=== PATIENT | female | born 1945 | race Caucasian/White ===

== ENCOUNTER → 2017-09-25 | Outpatient (REF) | payer MEDICARE, OTHER ==
[~2017-09-25] MED LIST: ALB18R INH; ALBU8.5H12 IH; ASPI-1441 PO; AZIT-17 PO; CELE-1 PO; CETI10CA8 PO; DUL100/5PT INH; EST3 PO; FLU10 PO; GABA-549 PO; HYDR12.558 PO; LEV125 PO; LORA-630 PO; METF-411 PO; MIRA25TA PO; OMEP40CA48 PO; PER PO; PRED20TA6 PO; PREG25 PO; QUIN10TA24 PO; ROS10 PO; SUMA25TA27 PO; SUMA50TA34 PO; TRIA-18 PO; [UNRECOGNIZED DRUG - OTHER] PO
== END ==
LOC: ZZSTITCHES 10:28
PROVIDERS: ATTEND Physician Assistant
DX: R25.2 Cramp and spasm (principal); R53.83 Other fatigue; R60.9 Edema, unspecified
CPT/HCPCS: 82040; 82247; 82310; 82374; 82435; 82565; 82947; 83735; 84075; 84132; 84155; 84295; 84450; 84460; 84484; 84520

== ENCOUNTER → 2017-09-30 | Outpatient (CLI) | payer MEDICARE, OTHER ==
--- NOTE | 2017-10-10 14:55 | RADIOLOGY IMAGING REPORT ---
FACILITY: [facility] [place] PATIENT NAME: NETO STOCK : [id number] MR: [id number] V: [id number] EXAM DATE: [id number] ORDERING PHYSICIAN: MARIUM LEE TECHNOLOGIST: Erica Hoyt PROCEDURE:BILATERAL DIGITAL SCREENING MAMMOGRAM WITH CAD ASSISTED INTERPRETATION & 3D TOMOSYNTHESIS. Views obtained: Bilateral 2D full field CC & MLO, and corresponding Tomography. COMPARISON:09/19/2016, 09/13/2015. INDICATIONS:SCREENING TISSUE DENSITY: Scattered fibroglandular densities. FINDINGS: There is no mammographic finding suspicious for malignancy, and no significant change compared to prior mammograms. DIAGNOSTIC CATEGORY 1--NEGATIVE. RECOMMENDATIONS: ROUTINE MAMMOGRAM AND CLINICAL EVALUATION. IMPRESSION: BIRADS 1: Negative. Dictated by: Narcisa Denson M.D. on 10/10/2017 at 12:31 Transcribed by: LAUREEN on 10/10/2017 at 13:26 Approved by: Narcisa Denson M.D. on 10/10/2017 at 14:54 [facility]
== END ==
LOC: MAMO 01:09
PROVIDERS: ATTEND Physician Assistant
DX: Z12.31 Encounter for screening mammogram for malignant neoplasm of breast (principal)
CPT/HCPCS: 77063; 77067

== ENCOUNTER → 2017-09-30 | Outpatient (CLI) | payer MEDICARE, OTHER ==
[2017-09-30 08:36] LABS: PLATELET COUNT, AUTOMATED 257 K/uL (150-450)
== END ==
LOC: LAB 07:45
PROVIDERS: ATTEND Internal Medicine
DX: J45.20 Mild intermittent asthma, uncomplicated (principal); R05 Cough; R06.02 Shortness of breath
CPT/HCPCS: 82785; 85025

== ENCOUNTER → 2017-09-30 | Outpatient (CLI) | payer MEDICARE, OTHER | LOC: LAB 07:42 | PROVIDERS: ATTEND Internal Medicine Cardiovascular Disease | DX: I65.23 Occlusion and stenosis of bilateral carotid arteries (principal) | CPT/HCPCS: 36415; 82040; 82247; 82310; 82374; 82435; 82465; 82565; 82947; 83718; 84075; 84132; 84155; 84295; 84450; 84460; 84478; 84520 ==

== ENCOUNTER → 2018-04-08 | Outpatient (CLI) | payer MEDICARE, OTHER ==
[~2018-04-08] MED LIST changes: -METF-411 PO; +METF-450 PO
--- NOTE | 2018-04-08 15:57 | RADIOLOGY IMAGING REPORT ---
[facility] PATIENT NAME: Claudia Handy : 1945 MR: [id number] V: [id number] EXAM DATE: ORDERING PHYSICIAN: EDWARD SHABAZZ TECHNOLOGIST: Location: [facility] Patient: Claudia Handy : 1945 Visit/Account:[id number] Date of Sevice: 04/08/2018 CHEST W/O CONTRAST History: Pulmonary nodule TECHNIQUE: Contiguous axial images were performed through the chest to the level of the adrenal gla nds. No IV contrast was administered. Coronal and sagittal reformatting was also performed.Dose Lower ing Technique One of the following dose optimization techniques was utilized in the performance of this exam: Autom ated exposure control; adjustment of the mA and/or kV according to the patient's size; or use of an i terative reconstruction technique. Specific details can be referenced in the facility's radiology C T exam operational policy. COMPARISON STUDIES: CTA chest April 28, 2017. Lungs / Pleura: The 4 mm noncalcified pulmonary nodule posterior lateral aspect the right lower lob e appears unchanged and is best seen on image 177 of series 4 there is a 2 mm intrafissural nodule ab utting the minor fissure on the right that remains unchanged as seen on image 160 Mediastinum/nodes: negative. Heart and vessels: negative. Musculoskeletal / Body wall: Moderate to severe spondylotic changes of the thoracic spine Upper abdomen: 1.4 x 1 cm hypoattenuating lesion in the lateral segment left lobe of the liver has remained stable IMPRESSION: 4 mm noncalcified pulmonary nodule in the right lower lobe has remained stable as has the 2 mm intraf issural nodule abutting the minor fissure on the right. These nodules are of doubtful significance g iven the stability 1.4 cm hypoattenuating lesion lateral segment left lobe of the liver is likewise stable Report Dictated By: Madonna Garnica MD at 04/08/2018 3:19 PM Report E-Signed By: Madonna Garnica MD at 04/08/2018 3:52 PM WSN:[email or web address]
== END ==
LOC: CT 00:33
PROVIDERS: ATTEND Internal Medicine
DX: R91.8 Other nonspecific abnormal finding of lung field (principal)
CPT/HCPCS: 71250

== ENCOUNTER → 2018-05-26 | Outpatient (CLI) | payer MEDICARE, OTHER ==
--- NOTE | 2018-05-26 16:14 | RADIOLOGY IMAGING REPORT ---
[place] [facility] [place] NAME[place] Claudia Handy : 1945 MR: [id number] V: [id number] EXAM DATE: ORDERING PHYSICIAN: STACY SCHROEDER TECHNOLOGIST: Location: [facility] [place] Patient: Claudia Handy : 1945 Visit/Account:[id number] Date of Sevice: 05/26/2018 EXAMINATION: CT orbits without IV contrast HISTORY: Double vision. TECHNIQUE: Spiral scan was obtained through the orbits without intravenous contrast. Sagittal and coronal reformatted images are also submitted. One of the following dose optimization techniques was utilized in the performance of this exam: Autom ated exposure control; adjustment of the mA and/or kV according to the patient's size; or use of an i terative reconstruction technique. Specific details can be referenced in the facility's radiology C T exam operational policy. COMPARISON: None available. FINDINGS: RIGHT ORBIT: Globe: Negative. Optic nerve / Intraconal space: Negative. Extra-ocular muscles / Extraconal space: Negative. Lacrimal gland: Negative. Bones: Negative. LEFT ORBIT: Globe: Negative. Optic nerve / Intraconal space: Negative. Extra-ocular muscles / Extraconal space: Negative. Lacrimal gland: Negative. Bones: Negative. Visualized intracranial structures / sinuses / soft tissues: Encephalomalacia/gliosis in the left fr ontal lobe. Bilateral temporomandibular joint surgical hardware. IMPRESSION: 1. Unremarkable CT of the orbits. 2. Encephalomalacia/gliosis in the left frontal lobe. 3. Bilateral temporomandibular joint surgical hardware. Report Dictated By: Allen Rollins MD at 05/26/2018 4:03 PM Report E-Signed By: Allen Rollins MD at 05/26/2018 4:10 PM WSN:[id number]
== END ==
LOC: CT 00:49
PROVIDERS: ATTEND Ophthalmology
DX: G93.89 Other specified disorders of brain (principal)
CPT/HCPCS: 70480

== ENCOUNTER → 2018-07-24 | Outpatient (REF) | payer MEDICARE, OTHER ==
[~2018-07-24] MED LIST changes: -ROS10 PO; +ROSU10TA PO
== END ==
LOC: ZZSTITCHES 10:33
PROVIDERS: ATTEND Physician Assistant
DX: R53.83 Other fatigue (principal); I10 Essential (primary) hypertension; E60 Dietary zinc deficiency
CPT/HCPCS: 82040; 82247; 82310; 82374; 82435; 82565; 82947; 84075; 84132; 84155; 84295; 84450; 84460; 84520; 84630

== ENCOUNTER → 2018-08-20 | Outpatient (CLI) | payer MEDICARE, OTHER ==
[~2018-08-20] MED LIST changes: +GADOBENATE 529MG/1ML 15ML VIAL IVP ONE
--- NOTE | 2018-08-20 19:28 | RADIOLOGY IMAGING REPORT ---
[place] [facility] [place] NAME: Claudia Handy : 1945 MR: [id number] V: [id number] EXAM DATE: ORDERING PHYSICIAN: MARIUM LEE TECHNOLOGIST: Location: Patient: Claudia Handy : 1945 Visit/Account:[id number] Date of Sevice: 08/20/2018 ADDENDUM #1 ADDENDUM: Per report patient has a history of reconstructive surgery to correct eyelid sagging. Swelling in the frontal scalp region. No apparent edema or fluid collection seen in the frontal scal p region. Small focus of linear enhancement in the midline frontal scalp, axial postcontrast image 26 may repre sent a pulsation artifact versus postoperative enhancement given history. No apparent abscess or flu id collection in this area based on the axial T2 acquisition. Results were called to MARIUM LEE on 08/20/2018 7:31 PM. Report Dictated By: Marek Chan MD at 08/20/2018 7:27 PM Report E-Signed By: Marek Chan MD at 08/20/2018 7:31 PM ORIGINAL REPORT Maxillofacial and orbit MR without and with contrast INDICATION: Postoperative infection, facial swelling, four head and orbital region swelling. COMPARISON: Orbit CT May 26, 2018, MR 03/24/2013 TECHNIQUE: Multiplane pre and postcontrast MR imaging performed through the maxillofacial and orbital regions. 15 mL MultiHance injected. FINDINGS: Minimal left frontoethmoidal recess mucosal thickening. Otherwise unremarkable sinuses. Normal orbital soft tissues without pathologic enhancement. Normal optic chiasm. Failure of fat saturation in the TMJ regions related to hardware in this region better visualized on comparison CT. Unchanged left frontal lobe scoliosis. Linear unchanged benign left frontal white matter enhancement, image 35 postcontrast axial. Unchange d left frontal lobe encephalomalacia. New 1 cm patch patch of left cheek region subcutaneous fat stranding without apparent fluid collectio n in this area best visualized on coronal STIR image 27. IMPRESSION: 1. New 1 cm left cheek region age-indeterminate subcutaneous fat stranding without apparent abscess in this area. This may represent the residua of distant trauma or surgery. Edema related to focal a cute cellulitis or focal contusion in this area cannot excluded. Correlate with exam. 2. Otherwise unremarkable orbit and maxillofacial MR. No abscess identified. Report Dictated By: Marek Chan MD at 08/20/2018 7:11 PM Report E-Signed By: Marek Chan MD at 08/20/2018 7:24 PM WSN:[email or web address]
== END ==
LOC: MRI 17:05
PROVIDERS: ATTEND Physician Assistant
DX: G50.1 Atypical facial pain (principal)
CPT/HCPCS: 70543; A9577

== ENCOUNTER → 2018-09-14 | Outpatient (CLI) | payer MEDICARE, OTHER ==
[~2018-09-14] MED LIST changes: -GADOBENATE 529MG/1ML 15ML VIAL IVP ONE
--- NOTE | 2018-09-14 13:25 | RADIOLOGY IMAGING REPORT ---
FACILITY: [facility] PATIENT NAME: Claudia Handy : 1945 MR: [id number] V: [id number] EXAM DATE: ORDERING PHYSICIAN: MARIUM LEE TECHNOLOGIST: Location[place] [facility] [place] Patient: Claudia Handy : 1945 Visit/Account:[id number] Date of Sevice: 09/14/2018 BONE DENSITY DEXA Scan Clinical history: Osteopenia. Comparison: DEXA scan from 03/20/2017. LUMBAR SPINE: The bone mineral density (BMD) measured from L1-L4 correlates with a Z-score 3.0 and a T-score of 1.5 which is Normal as defined by the World Health Organization. The corresponding risk of fracture in the lumbar spine is Not increased compared with a young adult reference population. This value has d ecreased by -6.7 % since the prior study. More than 5% change is considered significant. Left HIP: Bone mineral density (BMD) measured in the Left total hip region correlates with a Z-score -0.2 and a T-score of -1.4 which is osteopenia as defined by the World Health Organization. The corresponding risk of fracture in the hip is increased nearly 3 times compared with a young adult reference populat ion. This value has decreased by -2.6 % since the prior study. More than 5% change is considered sig nificant. Bone mineral density (BMD) measured in the Femoral Neck region measures 0.796 g/cm2. T score of -1.7 . Osteopenia. Fracture risk increased between 3-4 times Right HIP: Bone mineral density (BMD) measured in the right total hip region correlates with a Z-score 0.2 and a T-score of -1.2 which is osteopenia as defined by the World Health Organization. The corresponding risk of fracture in the hip is increased between 2-3 times compared with a young adult reference popu lation. This value has decreased by -3.5 % since the prior study. More than 5% change is considered significant. Bone mineral density (BMD) measured in the Femoral Neck region measures 0.811 g/cm2. T score of -1.6 . Osteopenia. Fracture risk increased between 3-4 times IMPRESSION: 1. Lumbar spine: Normal. There has been significant decrease in the bone mineral density since the previous exam. 2. Left Total Hip: Osteopenia. There has been decrease in the bone mineral density since the previo us exam. 3. Femoral Neck: Bone Mineral Density is 0.796. g/cm2 osteopenia. 4. Right Total Hip: Osteopenia. There has been decrease in the bone mineral density since the previo us exam. 5. Right Femoral Neck: Bone Mineral Density is 0.811. g/cm2 osteopenia. Follow-up scan should include the following sites: L1-L4 and both hips. FRAX? WHO Fracture Risk Assessment Tool link: <http://www.shef.ac.uk/FRAX/tool.jsp?locationValue=9> PLEASE NOTE: 1) The World Health Organization defines low BMD as follows: T-score Normal > -1 Osteopenia < -1 and > -2.5 Osteoporosis < -2.5 without fractures Established osteoporosis < -2.5 with fractures 2) In general, you may wish to consider: Diagnosis Treatment Follow-up DEXA Normal BMD Prevention 2-3 years Osteopenia Prevention/therapy 1-2 years Osteoporosis Therapy Yearly 3) Fracture risk estimated from the T-score is more accurate for vertebral fractures (often spontane ous) than for hip fractures. Report Dictated By: Josh Abel MD at 09/14/2018 1:03 PM Report E-Signed By: Josh Abel MD at 09/14/2018 1:20 PM WSN:[email or web address]
== END ==
LOC: RAD 09-07 00:27
PROVIDERS: ATTEND Physician Assistant
DX: M85.851 Other specified disorders of bone density and structure, right thigh (principal); M85.852 Other specified disorders of bone density and structure, left thigh
CPT/HCPCS: 77080

== ENCOUNTER → 2018-11-18 | Outpatient (REF) | payer MEDICARE, OTHER ==
[2018-11-18 17:39] LABS: PLATELET COUNT, AUTOMATED 282 K/uL (150-450)
== END ==
LOC: ZZSTITCHES 17:22
PROVIDERS: ATTEND Physician Assistant
DX: Z02.9 Encounter for administrative examinations, unspecified (principal)
CPT/HCPCS: 82040; 82247; 82310; 82374; 82435; 82565; 82947; 84075; 84132; 84155; 84295; 84443; 84450; 84460; 84520; 85025